=== PATIENT | female | born 1950 | race Caucasian/White ===

== ENCOUNTER 2017-01-11 10:19 | Emergency (ER) | payer OTHER ==
[2017-01-11 10:44] VITALS: TEMP 98.3; BMI 20.6
--- NOTE | 2017-01-11 11:16 | ED PDOC ---
Arrival/HPI - General Historian: Patient - History of Present Illness Time/Duration: Other (2 days) Context: Home - General Chief Complaint: Cough, Cold, Congestion Time Seen by Provider: 01/11/17 11:11 - History of Present Illness Narrative History of Present Illness (Text): 01/11/17 11:11 This 66 yo female presents to this ED c/o sinuses pressure, nasal congestion, cough, eczema, and an abscess x 2 days. Patient is requesting steroid cream for her chronic eczema. She is also requesting medication for what she believes she has sinusitis, and cough medication. Patient denies fever, sob, cp , abdominal pain, or abnormal gait. (Stevie Suresh) Past Medical History - Provider Review Nursing Documentation Reviewed: Yes - Cardiac Hx Cardiac Disorders: Yes Hx Hypertension: Yes - Pulmonary Hx Respiratory Disorders: Yes Hx Pneumonia: Yes - Neurological Hx Neurological Disorder: No - HEENT Hx HEENT Disorder: No - Renal Hx Renal Disorder: No - Endocrine/Metabolic Hx Endocrine Disorders: No - Hematological/Oncological Hx Blood Disorders: No - Integumentary Hx Dermatological Disorder: No - Musculoskeletal/Rheumatological Hx Musculoskeletal Disorders: No - Gastrointestinal Hx Gastrointestinal Disorders: No - Genitourinary/Gynecological Hx Genitourinary Disorders: Yes Hx Urinary Tract Infection: Yes - Psychiatric Hx Substance Use: No - Surgical History Hx Section: Yes Hx Hysterectomy: Yes - Anesthesia Hx Anesthesia: No Hx Anesthesia Reactions: No Hx Malignant Hyperthermia: No Family/Social History - Physician Review Nursing Documentation Reviewed: Yes Family/Social History: Other (non-contributory) Smoking Status: Never Smoked Hx Alcohol Use: No Hx Substance Use: No Allergies/Home Meds Allergies/Adverse Reactions: Allergies No Known Allergies Allergy (Verified 01/11/17 11:19) Home Medications: Home Meds Medication Instructions Recorded Confirmed Atenolol [Tenormin] 50 mg PO DAILY 01/11/17 01/11/17 Lisinopril [Zestril] 20 mg PO DAILY 01/11/17 01/11/17 amLODIPine [Norvasc] 10 mg PO DAILY 01/11/17 01/11/17 busPIRone [Buspar] 10 mg PO BID 01/11/17 01/11/17 Review of Systems - Review of Systems Constitutional: Normal. absent: Fatigue, Weight Change, Fevers Eyes: Normal ENT: Sinus Congestion Respiratory: Cough. absent: SOB, Sputum, Wheezing Cardiovascular: Normal. absent: Chest Pain, Palpitations Gastrointestinal: Normal. absent: Abdominal Pain, Nausea, Vomiting Genitourinary Female: Normal Musculoskeletal: Normal Skin: Cellulitis Neurological: Normal Endocrine: Normal Hemo/Lymphatic: Normal Psychiatric: Normal Physical Exam Temperature: Afebrile Blood Pressure: Normal Pulse: Regular Respiratory Rate: Normal Appearance: Positive for: Well-Appearing, Non-Toxic, Comfortable Pain Distress: None Mental Status: Positive for: Alert and Oriented X 3 - Systems Exam Head: Present: Atraumatic, Normocephalic Pupils: Present: PERRL Extroacular Muscles: Present: EOMI Conjunctiva: Present: Normal Mouth: Present: Moist Mucous Membranes Pharnyx: Present: Normal. No: ERYTHEMA, EXUDATE, TONSILS ENLARGED Nose (External): Present: Atraumatic Nose (Internal): Present: Normal Inspection Neck: Present: Normal Range of Motion, Trachea Midline. No: Meningeal Signs Respiratory/Chest: Present: Clear to Auscultation, Good Air Exchange. No: Respiratory Distress, Accessory Muscle Use Cardiovascular: Present: Regular Rate and Rhythm, Normal S1, S2. No: Murmurs Abdomen: Present: Normal Bowel Sounds. No: Tenderness, Distention, Peritoneal Signs Back: Present: Normal Inspection Upper Extremity: Present: Normal Inspection, Normal ROM, Neurovascularly Intact , Capillary Refill < 2s. No: Cyanosis, Edema Lower Extremity: Present: Normal Inspection, NORMAL PULSES, Normal ROM, Capillary Refill < 2 s. No: Edema Neurological: Present: GCS=15, CN II-XII Intact, Speech Normal, Motor Func Grossly Intact, Normal Sensory Function, Normal Cerebellar Funct Skin: Present: Warm, Dry, Normal Color, Abscess (1 cm indurated abscess anterior lower chest. No fluctuance.). No: Rashes Psychiatric: Present: Alert, Oriented x 3, Normal Insight, Normal Concentration Medical Decision Making Re-evaluation Time: 11:19 Reassessment Condition: Re-examined, Improved ED Course and Treatment: 01/11/17 11:19 Re-evaluation. Patient feels better. Discussed results and plan with patient who expresses understanding. All questions answered and there is agreement with the plan to discharge home with instructions. Patient stable for discharge. Return if symptoms persist or worsen. Patient requesting Triamcinolone 0.1 % cream for her chronic eczema (Stevie Suresh) I was available for consultation during PA evaluation. The chart was reviewed by me, and I agree with disposition. The documented history was done by the physician cutter gas. The documented procedures were done by the physician cutter gas. (Cal Kingston) Disposition/Present on Arrival - Present on Arrival Any Indicators Present on Arrival: No History of DVT/PE: No History of Uncontrolled Diabetes: No Urinary Catheter: No History of Decub. Ulcer: No History Surgical Site Infection Following: None - Disposition Have Diagnosis and Disposition been Completed?: Yes Disposition Time: 11:20 Patient Plan: Discharge - Disposition Diagnosis: Sinusitis, Abscess, Medication refill Disposition: HOME/ ROUTINE Discharge Instructions (ExitCare): Sinusitis (ED), Abscess (ED) Additional Instructions: Call private doctor for follow up visit in 1-2 days. Apply cream in affected areas, and avoid on you face. Take medication as instructed. Return to emergency if abscess worsen. Prescriptions: Amoxicillin [Amoxil 500 mg Cap] 500 mg PO TID #30 cap Promethazine/Codeine [Codeine/Promethazine 10 MG/5 Ml-6.25 MG/5 Ml] 5 ml PO Q6H PRN #120 ml PRN Reason: Cough Sulfamethoxazole/Trimethoprim [Bactrim DS 800 mg-160 mg] 1 tab PO BID #14 tab Triamcinolone 0.1% [Triamcinolone 0.1% Cream] 1 applic TP BID PRN #1 tube PRN Reason: Itching / Pruritus Referrals: [facility] [Outside] - Follow up with primary [facility] [Outside] - Follow up with primary Forms: [employer] (Irish)
[2017-01-11 11:41] VITALS: BP 140/82; PULSE 78; RESP 17; O2SAT 98
== END 2017-01-11 11:43 | disposition home or self-care (01) ==
LOC: ED 10:19
DX: Z76.0 Encounter for issue of repeat prescription (principal); J32.9 Chronic sinusitis, unspecified; L02.213 Cutaneous abscess of chest wall

== ENCOUNTER 2017-03-26 10:55 | Emergency (ER) | payer MEDICARE, OTHER ==
[2017-03-26 11:55] VITALS: RESP 18; TEMP 98.8; O2SAT 96; BMI 20.7
--- NOTE | 2017-03-26 12:24 | ED PDOC ---
Arrival/HPI <Wade Garvey - Last Filed: 03/26/17 12:48> - General Historian: Patient - History of Present Illness Time/Duration: 24 hours Symptom Onset: Sudden Symptom Course: Unchanged Activities at Onset: Rest, Light Context: Home <KirbyAakash - Last Filed: 03/26/17 12:56> - General Chief Complaint: Cough, Cold, Congestion Time Seen by Provider: 03/26/17 11:12 - History of Present Illness Narrative History of Present Illness (Text): 03/26/17 12:18 Ms. Rubi is a 66 year old female with a past medical history significant for HTN and anxiety who presents to the [facility] ED complaining of headache, sinus congestion, and productive cough. Patient reports that these symptoms started yesterday morning and have been mostly constant since that time. She endorses that the headache is located mostly in the frontal regions, correlating with past sinus congestion headaches per patient. She also endorses that her cough is productive of white sputum with streaks of green phlegm but denies hemoptysis. Of note, patient endorses that her permenant residence is in [place] , where she has a PMD, but she has been in [place] helping with her grandson for the past 3 months and she reports that she returns home next week. She denies recent travel, sick contacts, fever, chills, changes in her vision, rhinorrhea, sore throat, chest pain, palpitations, SOB, wheezing, abdominal pain, N/V/D/C, burning/pain with urination, rash, or any numbness/tingling/weakness of her extremities. (Aakash Orr) Past Medical History - Provider Review Nursing Documentation Reviewed: Yes - Travel History Have you recently traveled outside w/in the past 3 mons?: No - Past History Past History: No Previous - Infectious Disease Hx of Infectious Diseases: None - Reproductive Menopause: Yes - Cardiac Hx Cardiac Disorders: Yes Hx Hypertension: Yes - Pulmonary Hx Respiratory Disorders: Yes Hx Pneumonia: Yes - Neurological Hx Neurological Disorder: No - HEENT Hx HEENT Disorder: No - Renal Hx Renal Disorder: No - Endocrine/Metabolic Hx Endocrine Disorders: No - Hematological/Oncological Hx Blood Disorders: No - Integumentary Hx Dermatological Disorder: No - Musculoskeletal/Rheumatological Hx Herniated Disk: Yes - Gastrointestinal Hx Gastrointestinal Disorders: No - Genitourinary/Gynecological Hx Genitourinary Disorders: Yes Hx Urinary Tract Infection: Yes - Psychiatric Hx Substance Use: No - Surgical History Hx Section: Yes (x2) Hx Hysterectomy: Yes - Anesthesia Hx Anesthesia: No Hx Anesthesia Reactions: No Hx Malignant Hyperthermia: No <Aakash Orr - Last Filed: 03/26/17 12:56> Family/Social History - Physician Review Nursing Documentation Reviewed: Yes Family/Social History: Unknown Family HX Smoking Status: Never Smoked Hx Alcohol Use: No Hx Substance Use: No <Aakash Orr - Last Filed: 03/26/17 12:56> Allergies/Home Meds <Wade Garvey - Last Filed: 03/26/17 12:48> <Aakash Orr - Last Filed: 03/26/17 12:56> Allergies/Adverse Reactions: Allergies morphine Allergy (Verified 03/10/17 10:38) ANAPHYLAXIS Home Medications: Home Meds Medication Instructions Recorded Confirmed Lisinopril [Zestril] 20 mg PO DAILY 01/11/17 03/26/17 amLODIPine [Norvasc] 10 mg PO DAILY 01/11/17 03/26/17 busPIRone [Buspar] 10 mg PO BID 01/11/17 03/26/17 Aspirin [Aspirin Chewable] 1 tab PO DAILY 03/10/17 03/26/17 Ascorbic Acid [Vitamin C] 1,090 mg PO DAILY 03/26/17 03/26/17 Aspirin [Adult Low Dose Aspirin EC] 81 mg PO DAILY 03/26/17 03/26/17 Calcium Carbonate/Vitamin D3 1 each PO DAILY 03/26/17 03/26/17 [Caltrate 600 + D Soft Chew Tab] Cholecalciferol (Vitamin D3) 2,000 unit PO DAILY 03/26/17 03/26/17 [Vitamin D3] Cyclobenzaprine [Cyclobenzaprine 10 mg PO DAILY 03/26/17 03/26/17 HCl] Metoprolol Succinate [Metoprolol 100 mg PO DAILY 03/26/17 03/26/17 Succinate Xl] Multivit-Min/Iron/Folic/Lutein 1 each PO DAILY 03/26/17 03/26/17 [Centrum Silver Women Tablet] Review of Systems - Physician Review All systems were reviewed & negative as marked: Yes - Review of Systems Constitutional: Normal. absent: Fevers, Night Sweats Eyes: Normal. absent: Vision Changes ENT: Sinus Congestion. absent: Normal, Sore Throat, Rhinorrhea Respiratory: Cough, Sputum (white with streaks of green). absent: Normal, SOB, Wheezing Cardiovascular: Normal. absent: Chest Pain, Palpitations Gastrointestinal: Normal. absent: Abdominal Pain, Constipation, Diarrhea, Nausea, Vomiting Genitourinary Female: Normal. absent: Dysuria Musculoskeletal: Normal Skin: Normal. absent: Rash Neurological: Headache (Mostly located in the frontal region). absent: Normal, Dizziness Endocrine: Normal Hemo/Lymphatic: Normal Psychiatric: Normal <Aakash Orr - Last Filed: 03/26/17 12:56> Physical Exam Vital Signs Reviewed: Yes Temperature: Afebrile Blood Pressure: Normal Pulse: Regular Respiratory Rate: Normal Appearance: Positive for: Well-Appearing, Non-Toxic, Comfortable Pain Distress: None Mental Status: Positive for: Alert and Oriented X 3 - Systems Exam Head: Present: Atraumatic, Normocephalic Pupils: Present: PERRL Extroacular Muscles: Present: EOMI Conjunctiva: Present: Normal Ears: Present: Normal, NORMAL TM Mouth: Present: Moist Mucous Membranes, Normal Lips, Normal Tounge, Normal Teeth Pharnyx: Present: ERYTHEMA. No: Normal, EXUDATE, TONSILS ENLARGED Nose (External): Present: Atraumatic Nose (Internal): Present: Edematous. No: Normal Inspection, Clear Mucous, Rhinorrhea, Purulent Mucous, Epistaxis Neck: Present: Normal Range of Motion, Trachea Midline. No: Meningeal Signs, MIDLINE TENDERNESS, Paraspinal Tenderness, JVD, Lymphadenopathy Respiratory/Chest: Present: Clear to Auscultation, Good Air Exchange. No: Respiratory Distress, Accessory Muscle Use, Wheezes, Rales, Retracting, Rhonchi , Tachypneic Cardiovascular: Present: Regular Rate and Rhythm, Normal S1, S2, Peripheal Pulses Present. No: Murmurs, Irregular Rhythm, Tachycardic, Bradycardic Abdomen: Present: Normal Bowel Sounds. No: Tenderness, Distention, Peritoneal Signs Back: Present: Normal Inspection. No: CVA Tenderness, Midline Tenderness, Paraspinal Tenderness Upper Extremity: Present: Normal Inspection. No: Cyanosis, Edema Lower Extremity: Present: Normal Inspection. No: Edema Neurological: Present: GCS=15, CN II-XII Intact, Speech Normal Skin: Present: Warm, Dry, Normal Color. No: Rashes Lymphatic: No: Cervical Adenopathy Psychiatric: Present: Alert, Oriented x 3, Normal Insight, Normal Concentration <Aakash Orr - Last Filed: 03/26/17 12:56> Vital Signs Temp Pulse Resp BP Pulse Ox 03/26/17 11:35 98.8 F 60 18 110/69 96 Medical Decision Making <Wade Garvey - Last Filed: 03/26/17 12:48> <Aakash Orr - Last Filed: 03/26/17 12:56> ED Course and Treatment: A 66 year old female with a headache, sinus congestion, and productive cough. In agreement with resident note, which includes further HPI details. Patient was seen and evaluated with resident, came up with plan and treatment together. (Wade Garvey) 03/26/17 12:28 Impression: 66 year old female with a past medical history significant for HTN and anxiety who presents to the [facility] ED complaining of headache, sinus congestion , and productive cough Plan: -Toradol 30mg IM STAT -Reassess and disposition Prior Visits: 03/10/2017: Patient seen and evaluated for knee pain 03/02/2017: Patient seen and evaluated for cough and sinus congestion. 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 MD/DO has examined the patient and agrees with the treatment plan. - Scribe Statement The provider has reviewed the documentation as recorded by the Scribe <Wade Garvey - Last Filed: 03/26/17 12:48> <Aakash Orr - Last Filed: 03/26/17 12:56> - Scribe Statement Kait Miranda Provider Scribe Attestation: All medical record entries made by the Scribe were at my direction and personally dictated by me. I have reviewed the chart and agree that the record accurately reflects my personal performance of the history, physical exam, medical decision making, and the department course for this patient. I have also personally directed, reviewed, and agree with the discharge instructions and disposition. (Wade Garvey) Disposition/Present on Arrival <Wade Garvey - Last Filed: 03/26/17 12:48> - Present on Arrival Any Indicators Present on Arrival: No History of DVT/PE: No History of Uncontrolled Diabetes: No Urinary Catheter: No History of Decub. Ulcer: No History Surgical Site Infection Following: None - Disposition Have Diagnosis and Disposition been Completed?: Yes Disposition Time: 12:54 Patient Plan: Discharge <Aakash Orr - Last Filed: 03/26/17 12:56> - Disposition Diagnosis: Cough Disposition: HOME/ ROUTINE Condition: STABLE Discharge Instructions (ExitCare): Cold Symptoms (ED), Acute Headache (ED) Additional Instructions: Ms. Rubi, thank you for letting us take care of you today. Your provider was Dr. Garvey. You were treated for headache and cold symptoms. The emergency medical care you received today was directed at your acute symptoms. If you were prescribed any medication, please fill it and take as directed. It may take several days for your symptoms to resolve. Return to the Emergency Department if your symptoms worsen, do not improve, or if you have any other problems. Please contact your doctor or call one of the physicians/clinics you have been referred to that are listed on the Patient Visit Information form that is included in your discharge packet. Bring any paperwork you were given at discharge with you along with any medications you are taking to your follow up visit. Our treatment cannot replace ongoing medical care by a primary care provider (PCP) outside of the emergency department. Thank you for allowing the [facility] team to be part of your care today. Referrals: [employer] Xander Reayse, [Primary Care Provider] - Follow up with primary Forms: [employer] (Telugu)
[2017-03-26 13:32] VITALS: BP 121/72; PULSE 55
== END 2017-03-26 13:38 | disposition home or self-care (01) ==
LOC: ED 10:55
DX: R05 Cough (principal); I10 Essential (primary) hypertension
CPT/HCPCS: 96372; 99283; J1885

== ENCOUNTER 2017-08-30 19:32 | Emergency (ER) | payer MEDICARE, MEDICAID ==
[2017-08-30 19:51] VITALS: BMI 20.7
--- NOTE | 2017-08-30 20:22 | ED PDOC ---
Arrival/HPI - General Chief Complaint: GI Problem Time Seen by Provider: 08/30/17 19:51 Historian: Patient - History of Present Illness Narrative History of Present Illness (Text): 08/30/17 20:17 66 year old female, with past medical history of hypertension, presents to the emergency department complaining of nausea, vomiting, and diarrhea last week and again earlier today. Patient informs improved symptoms and believes that the symptoms may have been foodborne. She presents to the emergency department because her family became worried and want her to get "checked out". Patient denies any abdominal pain, chest pain, fever, chills, shortness of breath or any other complaints. Patient denies any recent travel outside of the [place]. PMD: Dr. Berger Time/Duration: 1 week Symptom Onset: Gradual Symptom Course: Improving Activities at Onset: Light Context: Home Past Medical History - Provider Review Nursing Documentation Reviewed: Yes - Travel History Have you recently traveled outside [place] w/in the past 3 mons?: No - Past History Past History: No Previous - Infectious Disease Hx of Infectious Diseases: None - Reproductive Menopause: No - Cardiac Hx Cardiac Disorders: Yes Hx Hypertension: Yes - Pulmonary Hx Respiratory Disorders: Yes Hx Pneumonia: Yes - Neurological Hx Neurological Disorder: No - HEENT Hx HEENT Disorder: No - Renal Hx Renal Disorder: No - Endocrine/Metabolic Hx Endocrine Disorders: No - Hematological/Oncological Hx Blood Disorders: No - Integumentary Hx Dermatological Disorder: No - Musculoskeletal/Rheumatological Hx Herniated Disk: Yes - Gastrointestinal Hx Gastrointestinal Disorders: No - Genitourinary/Gynecological Hx Genitourinary Disorders: Yes Hx Urinary Tract Infection: Yes - Psychiatric Hx Substance Use: No - Surgical History Hx Section: Yes (x2) Hx Hysterectomy: Yes - Anesthesia Hx Anesthesia: No Hx Anesthesia Reactions: No Hx Malignant Hyperthermia: No Family/Social History - Physician Review Nursing Documentation Reviewed: Yes Family/Social History: No Known Family HX Smoking Status: Never Smoked Hx Alcohol Use: No Hx Substance Use: No Allergies/Home Meds Allergies/Adverse Reactions: Allergies morphine Allergy (Verified 03/10/17 10:38) ANAPHYLAXIS Home Medications: Home Meds Medication Instructions Recorded Confirmed Lisinopril [Zestril] 20 mg PO DAILY 01/11/17 03/26/17 amLODIPine [Norvasc] 10 mg PO DAILY 01/11/17 03/26/17 busPIRone [Buspar] 10 mg PO BID 01/11/17 03/26/17 Aspirin [Aspirin Chewable] 1 tab PO DAILY 03/10/17 03/26/17 Ascorbic Acid [Vitamin C] 1,090 mg PO DAILY 03/26/17 03/26/17 Aspirin [Adult Low Dose Aspirin EC] 81 mg PO DAILY 03/26/17 03/26/17 Calcium Carbonate/Vitamin D3 1 each PO DAILY 03/26/17 03/26/17 [Caltrate 600 + D Soft Chew Tab] Cholecalciferol (Vitamin D3) 2,000 unit PO DAILY 03/26/17 03/26/17 [Vitamin D3] Cyclobenzaprine [Cyclobenzaprine 10 mg PO DAILY 03/26/17 03/26/17 HCl] Metoprolol Succinate [Metoprolol 100 mg PO DAILY 03/26/17 03/26/17 Succinate Xl] Multivit-Min/Iron/Folic/Lutein 1 each PO DAILY 03/26/17 03/26/17 [Centrum Silver Women Tablet] Review of Systems - Physician Review All systems were reviewed & negative as marked: Yes - Review of Systems Constitutional: Normal. absent: Fevers Eyes: Normal ENT: Normal Respiratory: Normal. absent: SOB Cardiovascular: Normal. absent: Chest Pain Gastrointestinal: Diarrhea, Nausea, Vomiting. absent: Abdominal Pain Genitourinary Female: Normal Musculoskeletal: Normal Skin: Normal Neurological: Normal Endocrine: Normal Hemo/Lymphatic: Normal Psychiatric: Normal Physical Exam Vital Signs Reviewed: Yes Vital Signs Temp Pulse Resp BP Pulse Ox 08/30/17 23:16 98.1 F 68 17 126/82 98 08/30/17 19:46 98.5 F 64 16 126/72 99 Temperature: Afebrile Blood Pressure: Normal Pulse: Regular Respiratory Rate: Normal Appearance: Positive for: Well-Appearing, Non-Toxic, Comfortable Pain Distress: None Mental Status: Positive for: Alert and Oriented X 3 - Systems Exam Head: Present: Atraumatic, Normocephalic Pupils: Present: PERRL Extroacular Muscles: Present: EOMI Conjunctiva: Present: Normal Mouth: Present: Moist Mucous Membranes Neck: Present: Normal Range of Motion Respiratory/Chest: Present: Clear to Auscultation, Good Air Exchange. No: Respiratory Distress, Accessory Muscle Use Cardiovascular: Present: Regular Rate and Rhythm, Normal S1, S2. No: Murmurs Abdomen: No: Tenderness, Distention, Peritoneal Signs Upper Extremity: Present: Normal Inspection. No: Cyanosis, Edema Lower Extremity: Present: Normal Inspection. No: Edema Neurological: Present: GCS=15, CN II-XII Intact, Speech Normal Skin: Present: Warm, Dry, Normal Color. No: Rashes Psychiatric: Present: Alert, Oriented x 3, Normal Insight, Normal Concentration Medical Decision Making ED Course and Treatment: 08/30/17 20:23 Impression: 66 year old female presents to the emergency department for nausea , vomiting, and diarrhea. Plan: -- Labs -- Reassess and disposition Progress Notes: 08/30/17 23:11 Pt. also requested refill on he eczema cream and rx. for nasal drip/nasal congestion. - Lab Interpretations Lab Results: 08/30/17 20:31 08/30/17 20:31 Lab Results 08/30/17 20:31: WBC 5.0, RBC 4.62, Hgb 14.0, Hct 41.3, MCV 89.4, MCH 30.3, MCHC 33.9, RDW 14.5, Plt Count 224, MPV 11.5 H 08/30/17 20:31: Sodium 146, Potassium 4.1, Chloride 107, Carbon Dioxide 24, Anion Gap 18, BUN 17, Creatinine 1.1, Est GFR ( Amer) 60, Est GFR (Non- Af Amer) 49, Random Glucose 77, Calcium 9.7, Total Bilirubin 0.4, AST 30, ALT 25 , Alkaline Phosphatase 79, Total Protein 7.9, Albumin 4.6, Globulin 3.3, Albumin /Globulin Ratio 1.4, Lipase 93 08/30/17 20:31: Urine Color Yellow, Urine Appearance Clear, Urine pH 7.0, Ur Specific Barnhart 1.020, Urine Protein Negative, Urine Glucose (UA) Negative, Urine Ketones Trace H, Urine Blood Negative, Urine Nitrate Negative, Urine Bilirubin Negative, Urine Urobilinogen 0.2, Ur Leukocyte Esterase Trace H, Urine RBC Negative, Urine WBC 1 - 3, Ur Epithelial Cells 0 - 2, Urine Bacteria Neg I have reviewed the lab results: Yes - Medication Orders Current Medication Orders: Discontinued Medications Sodium Chloride (Sodium Chloride 0.9%) 1,000 mls @ 999 mls/hr IV .Q1H1M STA Stop: 08/30/17 21:53 Last Admin: 08/30/17 21:24 Dose: 999 mls/hr eMAR Start Stop Document 08/30/17 21:24 IT (Rec: 08/30/17 21:24 IT [id number]) Intravenous Solution Start Date 08/30/17 Start Time 21:24 Ondansetron HCl (Zofran Inj) 4 mg IVP ONCE ONE Stop: 08/30/17 20:54 Last Admin: 08/30/17 21:24 Dose: 4 mg IVP Administration Document 08/30/17 21:24 IT (Rec: 08/30/17 21:24 IT [id number]) Charges for Administration # of IVP Administrations 1 - Scribe Statement The provider has reviewed the documentation as recorded by the Scribe Moe Augustin. All medical record entries made by the Scribe were at my direction and personally dictated by me. I have reviewed the chart and agree that the record accurately reflects my personal performance of the history, physical exam, medical decision making, and the department course for this patient. I have also personally directed, reviewed, and agree with the discharge instructions and disposition. Disposition/Present on Arrival - Present on Arrival Any Indicators Present on Arrival: No History of DVT/PE: No History of Uncontrolled Diabetes: No Urinary Catheter: No History of Decub. Ulcer: No History Surgical Site Infection Following: None - Disposition Have Diagnosis and Disposition been Completed?: Yes Diagnosis: Gastroenteritis Disposition: HOME/ ROUTINE Disposition Time: 22:58 Patient Plan: Discharge Condition: GOOD Discharge Instructions (ExitCare): Gastroenteritis (ED) Additional Instructions: Drink small amounts of liquids at a time/take meds as prescribed/advance diet as tolerated/follow up with your doctor Prescriptions: Fexofenadine/Pseudoephedrine [Krys-D 12 Hour Tablet] 1 each PO BID PRN #24 tab.er.12h PRN Reason: Nasal Congestion Triamcinolone Acetonide 0.1% [Kenalog 0.1% CREAM] 1 applic TP BID PRN #30 gm PRN Reason: Itching / Pruritus Ondansetron [Zofran Odt] 4 mg PO Q6 PRN #12 odt PRN Reason: Nausea/Vomiting Referrals: Darci Berger MD [Primary Care Provider] - Follow up with primary Forms: [employer] (Czech)
[2017-08-30] MEDS ORDERED: Sodium Chloride 0.9% 1,000 ML IV STA (20:53)
[2017-08-30 20:59] LABS: MEAN CELL VOLUME 89.4 fl (80.0-105.0); MEAN CORPUSCULAR HEMOGLOBIN 30.3 pg (25.0-35.0); MEAN CORPUSCULAR HGB CONC 33.9 g/dl (31.0-37.0); MEAN PLATELET VOLUME 11.5 fl (7.0-11.0); RBC 4.62 10^6/uL (3.5-6.1); RED CELL DISTRIBUTION WIDTH 14.5 % (11.5-14.5); URINE BILIRUBIN NEGATIVE (NEGATIVE); URINE BLOOD NEGATIVE (NEGATIVE); URINE GLUCOSE (UA) NEGATIVE (NEGATIVE); URINE LEUKOCYTE ESTERASE TRACE Leu/uL (NEGATIVE); URINE PROTEIN NEGATIVE mg/dL (<30 mg/dL); URINE UROBILINOGEN 0.2 E.U./dL (<1 E.U./dL)
[2017-08-30 21:03] LABS: URINE APPEARANCE CLEAR (CLEAR); URINE COLOR YELLOW (YELLOW)
[2017-08-30 21:09] LABS: URINE BACTERIA NEG (NEG); URINE EPITHELIAL CELLS 0 - 2 /hpf (0-5); URINE RBC NEGATIVE /hpf (0-2)
[2017-08-30 21:26] LABS: ALB/GLOB RATIO 1.4 (1.1-1.8); ALBUMIN 4.6 g/dL (3.0-4.8); CALCIUM 9.7 mg/dL (8.4-10.5)
[2017-08-30 23:18] VITALS: BP 126/82; PULSE 68; RESP 17; TEMP 98.1; O2SAT 98
== END 2017-08-30 23:18 | disposition home or self-care (01) ==
LOC: ED 19:32
DX: K52.9 Noninfective gastroenteritis and colitis, unspecified (principal); I10 Essential (primary) hypertension
CPT/HCPCS: 80053; 81001; 83690; 85027; 87086; 96374; 99284; J2405; J7040

== ENCOUNTER 2017-10-24 15:34 | Emergency (ER) | payer MEDICARE, OTHER ==
[2017-10-24 15:55] VITALS: TEMP 97.9
[2017-10-24 15:56] VITALS: BMI 22.1
--- NOTE | 2017-10-24 15:59 | ED PDOC ---
Arrival/HPI - General Time Seen by Provider: 10/24/17 15:50 Historian: Patient - History of Present Illness Narrative History of Present Illness (Text): 10/24/17 15:55 66yo female with pmhx of hypertension and anxiety who present with 2days history of nasal congestion, facial pressure and headache. she reports multiple history of sinusitis. States is difficult to breath and she has been using Eucalpytus. She denies fever, chills, cough, sore throat, chest pain, sick contact, focal weakness, neck pain, any other complaint. Past Medical History - Provider Review Nursing Documentation Reviewed: Yes - Past History Past History: No Previous - Infectious Disease Hx of Infectious Diseases: None - Cardiac Hx Cardiac Disorders: Yes Hx Hypertension: Yes - Pulmonary Hx Respiratory Disorders: Yes Hx Pneumonia: Yes - Neurological Hx Neurological Disorder: No - HEENT Hx HEENT Disorder: No - Renal Hx Renal Disorder: No - Endocrine/Metabolic Hx Endocrine Disorders: No - Hematological/Oncological Hx Blood Disorders: No - Integumentary Hx Dermatological Disorder: No - Musculoskeletal/Rheumatological Hx Herniated Disk: Yes - Gastrointestinal Hx Gastrointestinal Disorders: No - Genitourinary/Gynecological Hx Genitourinary Disorders: Yes Hx Urinary Tract Infection: Yes - Psychiatric Hx Substance Use: No - Surgical History Hx Section: Yes (x2) Hx Hysterectomy: Yes - Anesthesia Hx Anesthesia: No Hx Anesthesia Reactions: No Hx Malignant Hyperthermia: No Family/Social History - Physician Review Nursing Documentation Reviewed: Yes Family/Social History: Unknown Family HX Smoking Status: Never Smoked Hx Alcohol Use: No Hx Substance Use: No Allergies/Home Meds Allergies/Adverse Reactions: Allergies morphine Allergy (Verified 10/24/17 15:51) ANAPHYLAXIS Home Medications: Home Meds Medication Instructions Recorded Confirmed Lisinopril [Zestril] 20 mg PO DAILY 01/11/17 03/26/17 amLODIPine [Norvasc] 10 mg PO DAILY 01/11/17 03/26/17 busPIRone [Buspar] 10 mg PO BID 01/11/17 03/26/17 Aspirin [Aspirin Chewable] 1 tab PO DAILY 03/10/17 03/26/17 Ascorbic Acid [Vitamin C] 1,090 mg PO DAILY 03/26/17 03/26/17 Aspirin [Adult Low Dose Aspirin EC] 81 mg PO DAILY 03/26/17 03/26/17 Calcium Carbonate/Vitamin D3 1 each PO DAILY 03/26/17 03/26/17 [Caltrate 600 + D Soft Chew Tab] Cholecalciferol (Vitamin D3) 2,000 unit PO DAILY 03/26/17 03/26/17 [Vitamin D3] Cyclobenzaprine [Cyclobenzaprine 10 mg PO DAILY 03/26/17 03/26/17 HCl] Metoprolol Succinate [Metoprolol 100 mg PO DAILY 03/26/17 03/26/17 Succinate Xl] Multivit-Min/Iron/Folic/Lutein 1 each PO DAILY 03/26/17 03/26/17 [Centrum Silver Women Tablet] Review of Systems - Physician Review All systems were reviewed & negative as marked: Yes - Review of Systems Constitutional: Normal Eyes: Normal ENT: Rhinorrhea, Sinus Congestion Respiratory: Normal Cardiovascular: Normal Gastrointestinal: Normal Genitourinary Female: Normal Musculoskeletal: Normal Skin: Normal Neurological: Headache. absent: Dizziness, Focal Weakness Endocrine: Normal Hemo/Lymphatic: Normal Psychiatric: Normal Physical Exam Vital Signs Reviewed: Yes Vital Signs Temp Pulse Resp BP Pulse Ox 10/24/17 15:54 97.9 F 69 20 100/57 L 95 Temperature: Afebrile Blood Pressure: Normal Pulse: Regular Respiratory Rate: Normal Appearance: Positive for: Well-Appearing, Non-Toxic, Comfortable Pain Distress: None Mental Status: Positive for: Alert and Oriented X 3 - Systems Exam Head: Present: Atraumatic, Normocephalic Pupils: Present: PERRL Extroacular Muscles: Present: EOMI Conjunctiva: Present: Normal Mouth: Present: Moist Mucous Membranes Nose (Internal): Present: Edematous (b/l), Other (Tenderness over the frontal sinus) Neck: Present: Normal Range of Motion Respiratory/Chest: Present: Clear to Auscultation, Good Air Exchange. No: Respiratory Distress, Accessory Muscle Use Cardiovascular: Present: Regular Rate and Rhythm, Normal S1, S2. No: Murmurs Abdomen: No: Tenderness, Distention, Peritoneal Signs Back: Present: Normal Inspection Upper Extremity: Present: Normal Inspection. No: Cyanosis, Edema Lower Extremity: Present: Normal Inspection. No: Edema Neurological: Present: GCS=15, CN II-XII Intact, Speech Normal Skin: Present: Warm, Dry, Normal Color. No: Rashes Psychiatric: Present: Alert, Oriented x 3, Normal Insight, Normal Concentration Medical Decision Making ED Course and Treatment: 10/24/17 17:39 PT presented for stated history. After she was seen she also reported nonproductive cough x 3days. She requested for cough medication. She was afebrile and in no respiratory distress. She was treated with Augmentin for Sinusitis CXR was added and negative She will be DC home with Tessalon Augmentin and flonase. Referred to the clinic/ ENT - RAD Interpretation Radiology Orders: 10/24/17 16:58 CHEST TWO VIEWS (PA/LAT) [RAD] Stat - Medication Orders Current Medication Orders: Benzonatate (Tessalon Perles) 100 mg PO TID STA Stop: 10/24/17 17:38 Discontinued Medications Amoxicillin/Clavulanate Potassium (Augmentin 875 Mg-125 Mg Tab) 1 tab PO STAT STA PRN Reason: Protocol Stop: 10/24/17 16:03 Last Admin: 10/24/17 16:18 Dose: 1 tab Fluticasone Propionate (Flonase) 1 actuation NS STAT STA Stop: 10/24/17 16:03 Last Admin: 10/24/17 16:24 Dose: 1 spr Ibuprofen (Motrin Tab) 600 mg PO STAT STA Stop: 10/24/17 16:07 Last Admin: 10/24/17 16:18 Dose: 600 mg MAR Pain/Vitals Document 10/24/17 16:18 MS (Rec: 10/24/17 16:18 [place] [facility] [id number] Pain Reassessment Is This A Pain ReAssessment? No Sleep Is patient sleeping during reassessment? 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 Description Intermittent Intensity 8 Scale Used Numeric Disposition/Present on Arrival - Present on Arrival Any Indicators Present on Arrival: No History of DVT/PE: No History of Uncontrolled Diabetes: No Urinary Catheter: No History Surgical Site Infection Following: None - Disposition Have Diagnosis and Disposition been Completed?: Yes Diagnosis: Acute sinusitis Disposition: HOME/ ROUTINE Disposition Time: 16:10 Patient Plan: Discharge Patient Problems: Current Active Problems Problem Status Onset Acute sinusitis Acute Condition: STABLE Discharge Instructions (ExitCare): Sinusitis, Adult (DC) Additional Instructions: Take medication as directed Follow up with the clinic/ENT Return to ED for any new or worsening symptoms Prescriptions: Amoxicillin/Clavulanate [Augmentin 875 MG-125 MG] 1 tab PO BID #14 tab Benzonatate [Tessalon Perle] 100 mg PO TID #20 capsule Ibuprofen [Motrin Tab] 600 mg PO Q6 #15 tab Referrals: Preston Johnson DO [[facility]] - [place] up with primary [facility] [place] [facility] - Follow up with primary
[2017-10-24] MEDS ORDERED: Amoxicillin-Clav 875-125 mg Tab PO STA (16:02)
[2017-10-24] MEDS ORDERED: Fluticasone Nasal 50 mcg/Spray NS STA (16:02)
[2017-10-24] MEDS ORDERED: Promethazine 6.25 MG/5 ML CUP PO STA (17:38)
[2017-10-24] MEDS ORDERED: Albuterol 0.083% Inhal Sol (2.5 mg/3 mL) UD IH PRN (17:44)
[2017-10-24 18:30] VITALS: BP 110/62; PULSE 72; RESP 18; O2SAT 99
--- NOTE | 2017-10-24 18:50 | RAD ---
HISTORY: cough COMPARISON: No prior. TECHNIQUE: Chest PA and lateral FINDINGS: LUNGS: Questionable infiltrate in the lingula or right middle lobe, only seen on the lateral view. PLEURA: No significant pleural effusion identified. No pneumothorax apparent. CARDIOVASCULAR: Normal. OSSEOUS STRUCTURES: No significant abnormalities. VISUALIZED UPPER ABDOMEN: Normal. OTHER FINDINGS: None. IMPRESSION: Questionable infiltrate in the lingula or right middle lobe, only seen on the lateral view.
== END 2017-10-24 18:30 | disposition home or self-care (01) ==
LOC: ED 15:34
DX: J01.90 Acute sinusitis, unspecified (principal); I10 Essential (primary) hypertension